=== PATIENT | female | born 1975 | race Caucasian/White ===

== ENCOUNTER 2021-07-19 17:52 | Emergency (ER) | payer BC ==
[~2021-07-19 17:52] MED LIST: LORTAB 5-325 M1 EACH PO; MIRALAX17 GM PO; NAPROXEN 250 M250 MG PO
[2021-07-19] MEDS ORDERED: TORADOL 10 MG T10 MG PO (20:26)
[2021-07-19] MEDS ORDERED: SILVADENE20 GM TP (20:26)
== END 2021-07-19 21:03 | disposition home or self-care (01) ==
LOC: ER1 17:52
DX: T21.21XA Burn of second degree of chest wall, initial encounter (principal); T21.22XA Burn of second degree of abdominal wall, initial encounter; T20.20XA Burn of second degree of head, face, and neck, unspecified site, initial encounter; T24.201A Burn of second degree of unspecified site of right lower limb, except ankle and foot, initial encounter; Z90.710 Acquired absence of both cervix and uterus; X12.XXXA Contact with other hot fluids, initial encounter; Y92.009 Unspecified place in unspecified non-institutional (private) residence as the place of occurrence of the external cause; Z23 Encounter for immunization
CPT/HCPCS: 16020; 90471; 90714; 96374; 96375; 99283; J1885; J2270; J2405